=== PATIENT | female | born 1980 | race Asian ===

== ENCOUNTER 2016-07-07 05:53 | Inpatient (IN) | payer BC ==
[~2016-07-07] VITALS: Ht 152.4 cm; Wt 51.7 kg
[~2016-07-07 05:53] MED LIST: PREN1TAB79
[2016-07-07 05:55] VITALS: BP_SYST 131
[2016-07-07 06:44] LABS: BASOPHILS % (AUTO) 0.1 % (0.0-2.0); EOSINOPHILS % (AUTO) 0.3 % (0.0-4.0); HEMATOCRIT 40.8 % (36-48); HEMOGLOBIN 13.7 g/dL (12.0-16.0); LYMPHOCYTES # (AUTO) 1.4 K/uL (1.0-5.5); LYMPHOCYTES % (AUTO) 19.4 % (20.5-51.5); MEAN CORPUSCULAR HEMOGLOBIN 25 pg (27-31); MEAN CORPUSCULAR HGB CONC 34 % (32-36); MEAN CORPUSCULAR VOLUME 74 fL (79.0-98.0); MONOCYTES # (AUTO) 0.4 K/uL (0.0-1.0); MONOCYTES % (AUTO) 5.2 % (1.7-9.3); NEUTROPHILS # (AUTO) 5.5 K/uL (1.8-7.7); PLATELET COUNT (AUTO) 223 K/uL (130-430); RED BLOOD CELL COUNT(AUTO) 5.51 MIL/uL (4.2-6.2); RED CELL DISTRIBUTION WIDTH 12.8 % (9.0-15.0); WHITE BLOOD COUNT (AUTO) 7.3 K/uL (4.8-10.8)
[2016-07-07 06:50] LABS: CALCIUM 8.8 mg/dL (8.4-11.0); CREATININE 0.51 mg/dL (0.55-1.30)
[2016-07-07] MEDS ORDERED: KCL 40 mEq in 100 mL (PREMIX) 100 ML IV ONE (07:00)
[2016-07-07] MEDS ORDERED: POTASSIUM CHLORIDE 20 MEQ/PKT PACKET PO ONE (07:00)
[2016-07-07 07:06] LABS: ALBUMIN 3.8 g/dL (3.4-4.8); FREE T4 (FREE THYROXINE) 4.8 ng/dL (0.6-1.6); THYROID STIMULATING HORMONE 0.03 uIu/mL (0.34-4.82); TOTAL BILIRUBIN 0.6 mg/dL (0.0-1.0); TOTAL PROTEIN, SERUM 7.4 g/dL (6.4-8.3)
[2016-07-07] MEDS ORDERED: METH10TA7 PO (07:06)
[2016-07-07] MEDS ORDERED: PROP40TA7 PO (07:06)
[2016-07-07] MEDS ORDERED: KCL 20 mEq in 100 mL (PREMIX) 200 ML IV ONE (07:15)
[2016-07-07 07:40] LABS: BILIRUBIN,URINE NEGATIVE (NEGATIVE); BLOOD, URINE NEGATIVE (NEGATIVE); CLARITY/URINE SL HAZY (CLEAR); COLOR,URINE YELLOW (YELLOW); GLUCOSE,URINE NEGATIVE (NEGATIVE); KETONES,URINE NEGATIVE (NEGATIVE); LEUKOCYTE ESTERASE ,URINE NEGATIVE (NEGATIVE); NITRITE, URINE NEGATIVE (NEGATIVE); PROTEIN URINE NEGATIVE (NEGATIVE); UROBILINOGEN,URINE 0.2 (0.2-1.0)
[2016-07-07] MEDS ORDERED: ONDANSETRON HCL 4 MG/2 ML VIAL IVP ONE (07:45)
[2016-07-07 08:45] VITALS: BP_SYST 123
[2016-07-07] MEDS ORDERED: POTASSIUM CHLORIDE 20 MEQ TAB.PRT.SR PO ONE (09:45)
[2016-07-07] MEDS ORDERED: LORazepam 2 MG/ML VIAL IVP PRN (10:00)
[2016-07-07] MEDS ORDERED: ACETAMINOPHEN 325 MG TABLET PO PRN (10:00)
[2016-07-07] MEDS ORDERED: METHIMAZOLE 5 MG TABLET PO SCH (10:00)
[2016-07-07] MEDS ORDERED: PROPRANOLOL HCL 10 MG TABLET (INDERAL) PO ONE (10:30)
[2016-07-07 12:18] LABS: POTASSIUM 4.6 mmol/L (3.5-5.1)
[2016-07-07 12:35] VITALS: BP_SYST 116
[2016-07-07] MEDS ORDERED: POTASSIUM CHLORIDE 20 MEQ TAB.PRT.SR PO SCH (14:00)
[2016-07-07 14:20] VITALS: BP_SYST 124
[2016-07-07] MEDS ORDERED: PROPRANOLOL HCL 10 MG TABLET (INDERAL) PO SCH (15:00)
== END 2016-07-07 14:40 | disposition home or self-care (01) | DRG 700 ==
LOC: SED 05:53 → SMU 07:58 → STU 08:25
PROVIDERS: ADMIT Internal Medicine; ATTEND Internal Medicine
DX: N25.89 Other disorders resulting from impaired renal tubular function (principal); E05.00 Thyrotoxicosis with diffuse goiter without thyrotoxic crisis or storm; G72.3 Periodic paralysis; Z83.3 Family history of diabetes mellitus; Z79.899 Other long term (current) drug therapy; Z83.49 Family history of other endocrine, nutritional and metabolic diseases
CPT/HCPCS: 36415; 80053; 81003; 83735-TC; 84132-TC; 84439; 84443-TC; 84999-TC; 85025; 93005; 96374; 99285; J2405; J3480

== ENCOUNTER 2019-03-09 06:14 | Day surgery (SDC) | payer BC ==
[~2019-03-09] VITALS: Ht 152.4 cm; Wt 63.5 kg
[~2019-03-09 06:14] MED LIST changes: +METH10TA7 PO; -PREN1TAB79; +PROP40TA7 PO
[2019-03-09] MEDS ORDERED: CEFAZOLIN SOD 2 GM in D5W 50 ML IV ONE (07:00)
[2019-03-09] MEDS ORDERED: FAMOTIDINE PF 20 MG/2 ML VIAL IVP ONE (07:10)
[2019-03-09] MEDS ORDERED: FUROSEMIDE 100 MG/10 ML VIAL IV ONE (07:10)
[2019-03-09] MEDS ORDERED: CLINDAMYCIN 2% VAGINAL CREAM VG ONE (07:10)
[2019-03-09] MEDS ORDERED: ROCURONIUM BROMIDE 10 MG/ML (ZEMURON) IV ONE (07:10)
[2019-03-09] MEDS ORDERED: KETOROLAC TROMETHAMINE 30 MG VIAL IVP ONE (07:10)
[2019-03-09] MEDS ORDERED: LIDOCAINE/EPI 1% 1:100000 20 ML VIAL INJ ONE (07:10)
[2019-03-09] MEDS ORDERED: MIDAZOLAM HCL 5 MG/5 ML VIAL IVP ONE ×2 (07:10→17:00)
[2019-03-09] MEDS ORDERED: LR 1,000 ML IV.SOLN IV ONE ×2 (07:10→17:00)
[2019-03-09] MEDS ORDERED: fentaNYL CITRATE 250 MCG/5 ML AMP IV ONE (07:10)
[2019-03-09] MEDS ORDERED: SEVOFLURANE 15 MIN GAS INH ONE (07:10)
[2019-03-09] MEDS ORDERED: ONDANSETRON HCL 4 MG/2 ML VIAL IVP ONE ×2 (07:10→17:00)
[2019-03-09] MEDS ORDERED: DEXTROSE 50% JECT 50 ML DISP.SYRIN IVP ONE (07:10)
[2019-03-09] MEDS ORDERED: DEXAMETHASONE SOD PHOSPHATE 4 MG/ML VIAL IVP ONE (07:10)
[2019-03-09] MEDS ORDERED: METOCLOPRAMIDE HCL 10 MG/2 ML VIAL IVP ONE (07:10)
[2019-03-09] MEDS ORDERED: POLYMYXIN 500,000/BACIT.10,000 UNITS in NS IRR 1 L IR ONE (07:26)
[2019-03-09] MEDS ORDERED: FAMOTIDINE PF 20 MG/2 ML VIAL ONE (08:04)
[2019-03-09] MEDS ORDERED: LR 1,000 ML IV SCH (08:26)
[2019-03-09] MEDS ORDERED: HYDROmorphone 2 MG/ML VIAL IVP PRN ×2 (08:30)
[2019-03-09] MEDS ORDERED: MEPERIDINE HCL/PF 25 MG/ML DISP.SYRIN IVP PRN (08:30)
[2019-03-09] MEDS ORDERED: HYDROmorphone 1 MG INJ. 1 MG/ML AMPUL IVP PRN (08:30)
[2019-03-09] MEDS ORDERED: ONDANSETRON HCL 4 MG/2 ML VIAL IVP PRN ×2 (09:15→17:45)
[2019-03-09] MEDS ORDERED: HYDROcodone/ACETAMIN 5-325 MG TAB (NORCO/ VICODIN) PO PRN (09:15)
[2019-03-09] MEDS ORDERED: OXYCODONE/ACETAMINOPHEN 5-325 TABLET PO PRN ×2 (09:15)
[2019-03-09] MEDS ORDERED: CEFAZOLIN 1 GM IVPB PREMIX 50 ML IV ONE (13:30)
[2019-03-09] MEDS ORDERED: IBUPROFEN 600 MG TABLET PO ONE (16:00)
[2019-03-09] MEDS ORDERED: HYDROcodone/ACETAMIN 5-325 MG TAB (NORCO/ VICODIN) ONE (16:08)
[2019-03-09] MEDS ORDERED: BUPIVACAINE /DEX PF 0.75% SPINAL 2 ML AMP INJ ONE (17:00)
[2019-03-09] MEDS ORDERED: NS IRRIG SOLN 1000 ML IR ONE (17:00)
[2019-03-09 17:42] LABS: BASOPHILS % (AUTO) 0.3 % (0.0-2.0); HEMATOCRIT 33.7 % (36-48); HEMOGLOBIN 11.6 g/dL (12.0-16.0); LYMPHOCYTES # (AUTO) 0.9 K/uL (1.0-5.5); LYMPHOCYTES % (AUTO) 7.4 % (20.5-51.5); MEAN CORPUSCULAR HEMOGLOBIN 29 pg (27-31); MEAN CORPUSCULAR HGB CONC 35 % (32-36); MEAN CORPUSCULAR VOLUME 84 fL (79.0-98.0); MONOCYTES # (AUTO) 0.1 K/uL (0.0-1.0); MONOCYTES % (AUTO) 0.9 % (1.7-9.3); NEUTROPHILS # (AUTO) 11.5 K/uL (1.8-7.7); NEUTROPHILS % (AUTO) 91.4 % (40.0-70.0); PLATELET COUNT (AUTO) 251 K/uL (130-430); RED BLOOD CELL COUNT(AUTO) 4.01 MIL/uL (4.2-6.2); RED CELL DISTRIBUTION WIDTH 12.6 % (9.0-15.0); WHITE BLOOD COUNT (AUTO) 12.6 K/uL (4.8-10.8)
[2019-03-09] MEDS ORDERED: fentaNYL CITRATE/PF 100 MCG/2 ML AMP IVP PRN ×2 (17:45)
[2019-03-09 18:00] VITALS: BP_SYST 92
[2019-03-09] MEDS ORDERED: ONDANSETRON HCL 4 MG/2 ML VIAL ONE (20:52)
== END 2019-03-10 01:30 | disposition home or self-care (01) ==
LOC: SDS 06:14 → SMU 06:15 → SPU 20:38 → SDS 03-10 01:30
PROVIDERS: ATTEND Specialist
DX: N39.3 Stress incontinence (female) (male) (principal); N92.6 Irregular menstruation, unspecified; N81.11 Cystocele, midline; N36.8 Other specified disorders of urethra; E03.9 Hypothyroidism, unspecified; Z79.899 Other long term (current) drug therapy
CPT/HCPCS: 36415; 57240; 57288; 85025; 88305; C1771; J0690 ×2; J1100; J1885; J1940; J2250; J2405; J2765; J3010; J3490 ×2; J7060; J7120; 88302